=== PATIENT | male | born 1960 | race Hispanic/Latino ===

== ENCOUNTER 2023-07-10 22:49 | Inpatient (IN) | payer OTHER ==
[~2023-07-10] VITALS: Ht 172.7 cm; Wt 101.8 kg
[2023-07-10 23:45] LABS: APPEARANCE,URINE CLEAR (CLEAR); BILIRUBIN,URINE NEGATIVE (NEGATIVE); COLOR,URINE LIGHT-YELLOW (YELLOW); GLUCOSE, URINE (UA) 300 mg/dL (NEGATIVE); KETONES,URINE NEGATIVE (NEGATIVE); LEUKOCYTE ESTERASE ,URINE NEGATIVE Leu/uL (NEGATIVE); NITRATE,URINE NEGATIVE (NEGATIVE); OCCULT BLOOD,URINE NEGATIVE (NEGATIVE); PH,URINE 6.5 (5.0-8.0); PROTEIN,URINE 30 mg/dL (NEGATIVE); UROBILINOGEN,URINE 0.2 mg/dL (0.2-1.0)
[2023-07-10 23:46] LABS: BASOPHILS # (AUTO) 0.06 K/uL (0.00-0.20); BASOPHILS % (AUTO) 0.6 % (0.0-5.0); EOSINOPHILS # (AUTO) 0.17 K/uL (0.00-0.70); EOSINOPHILS % (AUTO) 1.8 % (0.0-8.0); HEMATOCRIT 34.9 % (42-54); IMMATURE GRANULOCYTE ABSOLUTE 0.04 K/uL (0-1); LYMPHOCYTES # (AUTO) 1.8 K/uL (1.0-4.8); LYMPHOCYTES % (AUTO) 18.7 % (21.0-51.0); MEAN CORPUSCULAR HEMOGLOBIN 28.1 pg (27.0-33.0); MEAN CORPUSCULAR HGB CONC 34.4 g/dL (32.0-36.0); MEAN CORPUSCULAR VOLUME 81.7 fL (79-99); MONOCYTES # (AUTO) 0.8 K/uL (0.1-1.0); MONOCYTES % (AUTO) 8.2 % (3.0-13.0); NEUTROPHILS # (AUTO) 6.6 K/uL (1.8-7.7); NEUTROPHILS % (AUTO) 70.3 % (40.0-77.0); PLATELET COUNT (AUTO) 283 K/uL (130-400); RED BLOOD CELL COUNT(AUTO) 4.27 MIL/uL (4.50-6.20); RED CELL DISTRIBUTION WIDTH 12.9 % (11.0-15.5); WHITE BLOOD COUNT (AUTO) 9.5 K/uL (4.8-10.8)
[2023-07-10 23:49] LABS: ADD UA MICROSCOPIC YES
[2023-07-10 23:51] LABS: MUCUS,URINE RARE LPF (None Seen); RBC,URINE 0-1 /HPF (0-1); SQUAMOUS EPITHELIAL CELL,UR RARE /HPF (0-2)
[2023-07-10 23:54] LABS: CREATININE 1.3 mg/dL (0.5-1.5); POTASSIUM 3.1 mmol/L (3.5-5.1)
[2023-07-10 23:59] LABS: ALBUMIN 3.2 g/dL (3.5-5.0); BILIRUBIN,TOTAL 0.4 mg/dL (0.2-1.0); TOTAL PROTEIN, SERUM 7.7 g/dL (6.0-8.3)
[2023-07-11] MEDS ORDERED: ZOSYN 3.375GM+NS 50ML 50 ML IVPB STA (00:09)
[2023-07-11] MEDS ORDERED: IOHEXOL-350 75 ML VIAL IV ONE (00:13)
[2023-07-11] MEDS ORDERED: KCL 20 MEQ ERTAB PO ONE (00:30)
[2023-07-11] MEDS ORDERED: 0.9%NACL 1000ML 2,000 ML IV SCH (00:30)
[2023-07-11] MEDS ORDERED: VANCOMYCIN 1G/250ML KIT 250 ML IV ONE ×2 (00:30→06:30)
[2023-07-11] MEDS ORDERED: MORPHINE 2 MG SYG IVP ONE (00:30)
[2023-07-11] MEDS ORDERED: MAGNESIUM 2GM PREMIX 50ML 50 ML IV PRN (03:00)
[2023-07-11] MEDS ORDERED: VANCOMYCIN PROTOCOL PER PHARMACY IV SCH (03:00)
[2023-07-11] MEDS ORDERED: ONDANSETRON 4MG INJ IV PRN (03:00)
[2023-07-11] MEDS ORDERED: DEXTROSE 50%-WATER 50 ML DISP.SYRIN IV PRN ×2 (03:00)
[2023-07-11] MEDS ORDERED: MORPHINE 2 MG SYG IVP PRN (03:00)
[2023-07-11] MEDS ORDERED: ZOSYN 3.375GM +NS 50ML IVPB SCH ×2 (03:00→09:00)
[2023-07-11] MEDS ORDERED: ACETAMINOPHEN 325 MG TAB PO PRN (03:00)
[2023-07-11] MEDS ORDERED: LACTATED RINGERS 1000ML 1,000 ML IV SCH (03:00)
[2023-07-11] MEDS ORDERED: GLUCAGON 1MG KIT 1 MG ML IM PRN ×2 (03:00)
[2023-07-11] MEDS: TRAMADOL HCL 50 MG TABLET PO SCH ×4 (03:00→22:09)
[2023-07-11] MEDS: INSULIN HUMULIN R 100 UNIT/ML 3ML SQ SCH ×4 (07:49→22:12)
[2023-07-11 07:56] LABS: BASOPHILS # (AUTO) 0.05 K/uL (0.00-0.20); BASOPHILS % (AUTO) 0.6 % (0.0-5.0); EOSINOPHILS # (AUTO) 0.18 K/uL (0.00-0.70); EOSINOPHILS % (AUTO) 2.3 % (0.0-8.0); HEMATOCRIT 32.4 % (42-54); IMMATURE GRANULOCYTE ABSOLUTE 0.03 K/uL (0-1); LYMPHOCYTES # (AUTO) 1.3 K/uL (1.0-4.8); LYMPHOCYTES % (AUTO) 16.6 % (21.0-51.0); MEAN CORPUSCULAR HEMOGLOBIN 28.2 pg (27.0-33.0); MEAN CORPUSCULAR HGB CONC 34.3 g/dL (32.0-36.0); MEAN CORPUSCULAR VOLUME 82.2 fL (79-99); MONOCYTES # (AUTO) 0.7 K/uL (0.1-1.0); MONOCYTES % (AUTO) 8.9 % (3.0-13.0); NEUTROPHILS # (AUTO) 5.7 K/uL (1.8-7.7); NEUTROPHILS % (AUTO) 71.2 % (40.0-77.0); PLATELET COUNT (AUTO) 255 K/uL (130-400); RED BLOOD CELL COUNT(AUTO) 3.94 MIL/uL (4.50-6.20)
[2023-07-11 08:09] LABS: INR < 0.93 (0.85-1.15); PROTHROMBIN TIME 10.5 SEC (9.6-11.6)
[2023-07-11 08:11] LABS: PARTIAL THROMBOPLASTIN TIME 30.1 SEC (26.3-35.5)
[2023-07-11 08:16] LABS: ALBUMIN 2.9 g/dL (3.5-5.0); BILIRUBIN,TOTAL 0.4 mg/dL (0.2-1.0); POTASSIUM 3.6 mmol/L (3.5-5.1)
[2023-07-11] MEDS: FAMOTIDINE 20MG TAB PO SCH ×2 (08:22→22:14)
[2023-07-11] MEDS ORDERED: 0.9%NACL 50ML IV SCH (09:00)
[2023-07-11 09:24] LABS: ERYTHROCYTE SEDIMENTATION RATE 70 MM/HR (0-20)
[2023-07-11] MEDS ORDERED: HYDRALAZINE 20MG/ML VIAL IV PRN (11:30)
[2023-07-11] MEDS: 0.9%NACL 1000ML 1,000 ML IV SCH (12:46)
[2023-07-11] MEDS: CEFTRIAXONE 1G VIAL IVPB SCH ×2 (12:46→22:07)
[2023-07-11] MEDS: DOXYCYCLINE 100MG+NS 250ML IV SCH ×2 (12:46→22:07)
[2023-07-11] MEDS: AMLODIPINE 5 MG TAB PO SCH (16:49)
[2023-07-11] MEDS: LOSARTAN 50 MG TABLET PO SCH (16:49)
[2023-07-11] MEDS ORDERED: GLIP10TA9 PO (17:02)
[2023-07-11] MEDS ORDERED: METF-446 PO (17:02)
[2023-07-11] MEDS ORDERED: AMLO-258 PO (17:02)
[2023-07-11] MEDS ORDERED: CHLO25TA3 PO (17:02)
[2023-07-11] MEDS ORDERED: LOSA100T59 PO (17:02)
[2023-07-11 22:00] VITALS: O2SAT 98
[2023-07-11] MEDS: VANCOMYCIN 1G/250ML KIT 250 ML IV SCH (22:01)
[2023-07-11 22:14] VITALS: BP 146/83; PULSE 99; RESP 19
[2023-07-12] VITALS (7 sets, daily range): BP systolic 142–163; BP diastolic 78–96; PULSE 63–98; RESP 17–20; O2SAT 96–98
[2023-07-12] MEDS: TRAMADOL HCL 50 MG TABLET PO SCH ×4 (03:00→20:35)
[2023-07-12] MEDS: LOSARTAN 50 MG TABLET PO SCH ×2 (03:30→15:29)
[2023-07-12] MEDS: 0.9%NACL 1000ML 1,000 ML IV SCH ×2 (03:30→14:10)
[2023-07-12 04:50] LABS: BASOPHILS # (AUTO) 0.04 K/uL (0.00-0.20); BASOPHILS % (AUTO) 0.5 % (0.0-5.0); EOSINOPHILS # (AUTO) 0.17 K/uL (0.00-0.70); HEMATOCRIT 33.4 % (42-54); IMMATURE GRANULOCYTE ABSOLUTE 0.04 K/uL (0-1); LYMPHOCYTES # (AUTO) 1.6 K/uL (1.0-4.8); LYMPHOCYTES % (AUTO) 18.9 % (21.0-51.0); MEAN CORPUSCULAR HEMOGLOBIN 27.6 pg (27.0-33.0); MEAN CORPUSCULAR HGB CONC 33.2 g/dL (32.0-36.0); MEAN CORPUSCULAR VOLUME 83.1 fL (79-99); MONOCYTES # (AUTO) 0.7 K/uL (0.1-1.0); MONOCYTES % (AUTO) 8.3 % (3.0-13.0); NEUTROPHILS # (AUTO) 5.8 K/uL (1.8-7.7); NEUTROPHILS % (AUTO) 69.8 % (40.0-77.0); PLATELET COUNT (AUTO) 281 K/uL (130-400); RED BLOOD CELL COUNT(AUTO) 4.02 MIL/uL (4.50-6.20); RED CELL DISTRIBUTION WIDTH 12.9 % (11.0-15.5); WHITE BLOOD COUNT (AUTO) 8.3 K/uL (4.8-10.8)
[2023-07-12 05:15] LABS: ALBUMIN 2.9 g/dL (3.5-5.0); BILIRUBIN,TOTAL 0.4 mg/dL (0.2-1.0); MAGNESIUM 1.6 mg/dL (1.80-2.40); POTASSIUM 3.4 mmol/L (3.5-5.1)
[2023-07-12] MEDS ORDERED: POTASSIUM CHLORIDE 20MEQ/100ML 100 ML IV PRN (06:00)
[2023-07-12] MEDS ORDERED: MAGNESIUM 2GM PREMIX 50ML 50 ML IV SCH (06:00)
[2023-07-12] MEDS ORDERED: POTASSIUM CHLORIDE 10% ELIXIR 20 MEQ/15 ML UDCUP PO PRN (06:00)
[2023-07-12] MEDS: KCL 20 MEQ ERTAB PO PRN ×2 (06:13→10:47)
[2023-07-12] MEDS: INSULIN HUMULIN R 100 UNIT/ML 3ML SQ SCH ×4 (07:56→20:39)
[2023-07-12] MEDS ORDERED: DOXY100T2 PO (08:39)
[2023-07-12] MEDS: CEFTRIAXONE 1G VIAL IVPB SCH ×2 (10:46→22:07)
[2023-07-12] MEDS: DOXYCYCLINE 100MG+NS 250ML IV SCH ×2 (10:47→23:58)
[2023-07-12] MEDS: VANCOMYCIN 1G/250ML KIT 250 ML IV SCH (10:47)
[2023-07-12] MEDS: FAMOTIDINE 20MG TAB PO SCH ×2 (10:47→20:35)
[2023-07-12] MEDS: AMLODIPINE 5 MG TAB PO SCH (15:29)
[2023-07-12] MEDS: ACETAMINOPHEN 325 MG TAB PO PRN (15:30)
[2023-07-13] VITALS: BP 158/92; PULSE 82; RESP 20
[2023-07-13] MEDS: LOSARTAN 50 MG TABLET PO SCH (02:27)
[2023-07-13] MEDS: TRAMADOL HCL 50 MG TABLET PO SCH ×2 (02:27→09:53)
[2023-07-13 04:00] VITALS: BP 158/82; PULSE 70; RESP 20
[2023-07-13 05:02] LABS: BASOPHILS # (AUTO) 0.04 K/uL (0.00-0.20); BASOPHILS % (AUTO) 0.5 % (0.0-5.0); EOSINOPHILS # (AUTO) 0.22 K/uL (0.00-0.70); HEMATOCRIT 32.8 % (42-54); IMMATURE GRANULOCYTE ABSOLUTE 0.04 K/uL (0-1); LYMPHOCYTES # (AUTO) 1.8 K/uL (1.0-4.8); LYMPHOCYTES % (AUTO) 23.8 % (21.0-51.0); MEAN CORPUSCULAR HEMOGLOBIN 27.9 pg (27.0-33.0); MEAN CORPUSCULAR HGB CONC 33.8 g/dL (32.0-36.0); MEAN CORPUSCULAR VOLUME 82.4 fL (79-99); MONOCYTES # (AUTO) 0.6 K/uL (0.1-1.0); MONOCYTES % (AUTO) 7.5 % (3.0-13.0); NEUTROPHILS # (AUTO) 4.8 K/uL (1.8-7.7); NEUTROPHILS % (AUTO) 64.7 % (40.0-77.0); PLATELET COUNT (AUTO) 269 K/uL (130-400); RED BLOOD CELL COUNT(AUTO) 3.98 MIL/uL (4.50-6.20); RED CELL DISTRIBUTION WIDTH 12.9 % (11.0-15.5); WHITE BLOOD COUNT (AUTO) 7.4 K/uL (4.8-10.8)
[2023-07-13 05:16] LABS: ALBUMIN 2.8 g/dL (3.5-5.0); BILIRUBIN,TOTAL 0.2 mg/dL (0.2-1.0); CREATININE 1.1 mg/dL (0.5-1.5); POTASSIUM 3.3 mmol/L (3.5-5.1); TOTAL PROTEIN, SERUM 7.1 g/dL (6.0-8.3)
[2023-07-13] MEDS: INSULIN HUMULIN R 100 UNIT/ML 3ML SQ SCH ×2 (05:52→12:51)
[2023-07-13] MEDS: KCL 20 MEQ ERTAB PO PRN ×2 (05:53→09:46)
[2023-07-13] MEDS: ACETAMINOPHEN 325 MG TAB PO PRN (05:58)
[2023-07-13 08:00] VITALS: BP 145/85; PULSE 75; RESP 18; O2SAT 97
[2023-07-13] MEDS: FAMOTIDINE 20MG TAB PO SCH (09:53)
[2023-07-13 12:00] VITALS: BP 157/96; PULSE 68; RESP 18
[2023-07-13] MEDS: CEFTRIAXONE 1G VIAL IVPB SCH (12:21)
[2023-07-13 13:05] LABS: HEMOGLOBIN A1C 8.5 % (4.0-6.0)
== END 2023-07-13 14:15 | disposition home or self-care (01) | DRG 728 ==
LOC: EDH 22:49 → EDHIP 07-11 02:54 → 3DH 07-11 18:05
PROVIDERS: ADMIT Hospitalist; ATTEND Hospitalist
DX: N45.3 Epididymo-orchitis (principal); E87.1 Hypo-osmolality and hyponatremia; D64.9 Anemia, unspecified; R59.1 Generalized enlarged lymph nodes; E86.1 Hypovolemia; A74.9 Chlamydial infection, unspecified; E11.9 Type 2 diabetes mellitus without complications; E66.01 Morbid (severe) obesity due to excess calories; E78.00 Pure hypercholesterolemia, unspecified; E86.0 Dehydration; E87.6 Hypokalemia; F43.10 Post-traumatic stress disorder, unspecified; G47.33 Obstructive sleep apnea (adult) (pediatric); I10 Essential (primary) hypertension; N43.2 Other hydrocele; Z83.3 Family history of diabetes mellitus; Z90.49 Acquired absence of other specified parts of digestive tract; Z79.899 Other long term (current) drug therapy; Z68.34 Body mass index [BMI] 34.0-34.9, adult
CPT/HCPCS: 36415; 74177; 76870; 80053; 80202; 81001; 82550; 82948; 83036; 83605; 83735; 83880; 84145; 84484; 85025; 85610; 85651; 85730; 86140; 87040; 87088; 87486; 87797; G0378; J0696; J1815; J2270; J2543; J3370; J3475; J3490; J7030; J7120; Q9967